=== PATIENT | male | born 1985 | race Caucasian/White ===

== ENCOUNTER 2021-09-17 06:28 | Day surgery (SDC) | payer OTHER ==
[~2021-09-17] VITALS: Ht 182.9 cm; Wt 88.5 kg
--- NOTE | 2021-09-17 08:05 | NUR ---
09/17/21 0805 Shraddha Deleon 0759- PT ARRIVES TO PACU AWAKE AND TALKING. PT REPORTS NO PAIN OR NAUSEA. RESP EVEN AND UNLABORED. OXYGEN SAT HIGH 90'S TO 100% ON 2L VIA CO2 NC. 0801- PT PASSING FLATUS.
--- NOTE | 2021-09-17 09:37 | NUR ---
PT ALERT, ORIENTED AND SUPPORTED BY HIS SHILOH. PT IS FHAVING FIRST SCOPE, HOPING TO FIND SOURCE OF HIS PROBLEM. ALL QUESTIONS ASKED ANSWERED SHILOH WILL REMAIN FOR DC. GAVE BLEGENEVIEVE, WILL FOLLOW
--- NOTE | 2021-09-18 10:46 | OR ---
[facility] [address], [place] [address] Signed DATE OF OPERATION: 09/17/2021 SURGEON: Otilio Cummings MD PREOPERATIVE DIAGNOSIS: Longstanding diarrhea, episodic rectal bleeding. POSTOPERATIVE DIAGNOSES: 1. Grossly normal colon and ilium. 2. Diminutive polyp of rectum. PROCEDURES: 1. Total colonoscopy to cecum with intubation of the ileum and biopsies. 2. Excision of diminutive polyp of rectum. ANESTHESIA: Intravenous sedation; fentanyl 150 mcg and Versed 8 mg. INDICATION: This 36-year-old white man is a patient of Dr. Conrad Wheeler. He has had diarrhea more or less since his teens. He was seen by front office medical assistant purportedly in [place], who did not recommend colonoscopy. He notes extreme diarrhea and fecal urgency, particularly after eating. He has had somewhat weight loss between 10 and 15 pounds, which was unintentional. He has no family history of inflammatory bowel disease or colon cancer. He takes no medications. 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 He is admitted to undergo colonoscopy to better characterize the problem. He understands the risk of bleeding, infection, and perforation. FINDINGS: The prep was excellent. Complete colonoscopy was undertaken to the cecum without question. Short segment intubation of the ileum was accomplished allowing for biopsies of the terminal ileum. There is no evidence of obvious inflammatory bowel disease or neoplasm. There was a diminutive polyp of the rectum, which was excised. DESCRIPTION OF PROCEDURE: The patient was brought to the endoscopy suite and placed in the lateral decubitus position, given intravenous sedation to the point of slurred speech and nystagmus. Digital rectal examination was normal. An Olympus video colonoscope was passed in the rectum and manipulated throughout the Electronically Signed By: OTILIO CUMMINGS MD 09/18/21 1046 PATIENT NAME: ALLYN GILBERT OPERATIVE REPORT DATE OF : 85 REPORT #: [id number] PHYSICIAN: OTILIO CUMMINGS MD PCP: CONRAD WHEELER MD REPORT IS CONFIDENTIAL AND NOT TO BE RELEASED WITHOUT AUTHORIZATION [facility] [address], [place] [address] Signed colon ultimately intubating the cecum itself. The ileocecal valve and appendiceal orifice appeared normal. Scope was manipulated into the ileum for short segment, which grossly appeared normal. Full intubation of the ileum was not forthcoming, it is noted however. Biopsies were obtained of the ileum. The scope was then withdrawn to the cecum and biopsies taken of the cecum, which also appeared normal. Careful withdrawal of the scope showed no sign of abnormality throughout the remaining colon. Biopsies were taken of the rectum as well. There was a diminutive polyp of the rectum, which was excised with cold morcellation technique. The scope was removed and the patient was taken to the recovery room in good condition. CONCLUSION DIAGNOSIS: No gross evidence of inflammatory bowel disease. Still the possibility remains of microscopic colitis (collagenous colitis or lymphocytic colitis) or other occult colitis type problems. PLAN: We will initiate loperamide 4 mg p.o. t.i.d. pending biopsy reports. We will additionally check a celiac panel (gluten enteropathy). He will return to see us in approximately 4 weeks. Otilio Cummings MD JM/MODL /[id number] cc: Conrad Wheeler MD Copies: CONRAD WHEELER MD ~ Electronically Signed By: OTILIO CUMMINGS MD 09/18/21 1046 PATIENT NAME: ALLYN GILBERT OPERATIVE REPORT DATE OF : [birth year] REPORT #: [id number] PHYSICIAN: OTILIO CUMMINGS MD PCP: CONRAD WHEELER MD REPORT IS CONFIDENTIAL AND NOT TO BE RELEASED WITHOUT AUTHORIZATION
--- NOTE | 2021-09-19 16:02 | PATH ---
[facility] [address], [place] [address] Signed SPECIMEN(S): A ILEUM BIOPSY SPECIMEN(S): B CECUM COLON BIOPSY SPECIMEN(S): C DESCENDING/LEFT COLON BIOPSY SPECIMEN(S): D SIGMOID COLON BIOPSY SPECIMEN(S): E RECTUM SPECIMEN(S): F RECTAL POLYP SPECIMEN SOURCE: A. ILEUM BIOPSY B. CECUM COLON BIOPSY C. DESCENDING/LEFT COLON BIOPSY D. SIGMOID COLON BIOPSY E. RECTUM F. RECTAL POLYP CLINICAL HISTORY: Colonoscopy. Chronic diarrhea. Postop: Grossly normal colon and ileum, diminutive polyp of rectum. FINAL PATHOLOGIC DIAGNOSIS: A. Ileum, biopsy: - Ileal mucosa with no histopathologic abnormality. - Negative for active inflammation or granulomas. - Negative for dysplasia or malignancy. B. Colon, cecum, biopsy: - Colonic mucosa with no histopathologic abnormality. - Negative for active, chronic, or microscopic colitis. - Negative for dysplasia or malignancy. C. Colon, descending/left, biopsy: - Colonic mucosa with no histopathologic abnormality. - Negative for active, chronic, or microscopic colitis. - Negative for dysplasia or malignancy. D. Colon, sigmoid, biopsy: - Colonic mucosa with no histopathologic abnormality. - Negative for active, chronic, or microscopic colitis. - Negative for dysplasia or malignancy. E. Rectum, biopsy: - Colonic mucosa with no histopathologic abnormality. - Negative for active, chronic, or microscopic colitis. - Negative for dysplasia or malignancy. F. Rectum, polyp, polypectomy: PATIENT NAME: ALLYN GILBERT PATHOLOGY DATE OF : 85 REPORT #: [id number] PHYSICIAN: ISAI SUMMERS PCP: CONRAD MAYERS MD REPORT IS CONFIDENTIAL AND NOT TO BE RELEASED WITHOUT AUTHORIZATION [facility] [address], [place] [address] Signed - Rectal mucosa with prominent mucosal lymphoid follicle, see Comment. - Negative for dysplasia or carcinoma. COMMENT: Regarding specimen F: Specimen F of this case will be sent for a hematopathology consultation and the results reported in an addendum. NAL:cml:[id number] MICROSCOPIC EXAMINATION: Histologic sections of all submitted blocks are examined by light microscopy. These findings, together with the gross examination, support the pathologic diagnosis. GROSS DESCRIPTION: Six specimens are received in six containers, labeled "JR." A. The specimen, labeled "JR, ileum biopsy," is received in formalin and consists of three hidalgo soft tissue fragments that measure 0.1-0.2 cm in greatest dimension. The specimen is entirely submitted in cassette (A1). B. The specimen, labeled "JR, cecum biopsy," is received in formalin and consists of two hidalgo soft tissue fragments that measure 0.1-0.2 cm in greatest dimension. The specimen is entirely submitted in cassette (B1). C. The specimen, labeled "JR, descending colon biopsy," is received in formalin and consists of two hidalgo soft tissue fragments that measure 0.1-0.2 cm in greatest dimension. The specimen is entirely submitted in cassette (C1). D. The specimen, labeled "JR, sigmoid colon biopsy," is received in formalin and consists of one hidalgo soft tissue fragment that measures 0.1 cm in greatest dimension. The specimen is entirely submitted in cassette (D1). E. The specimen, labeled "JR, rectum biopsy," is received in formalin and consists of five hidalgo soft tissue fragments that measure 0.1 cm in greatest dimension. The specimen is entirely submitted in cassette (E1). F. The specimen, labeled "JR, rectum polyp," is received in formalin and consists of two hidalgo soft tissue fragments that measure 0.1 cm in greatest dimension. The specimen is entirely submitted in cassette (F1). JS (under the direct supervision of a pathologist) PATIENT NAME: ALLYN GILBERT PATHOLOGY DATE OF : 85 REPORT #: [id number] PHYSICIAN: ISAI SUMMERS PCP: CONRAD MAYERS MD REPORT IS CONFIDENTIAL AND NOT TO BE RELEASED WITHOUT AUTHORIZATION [facility] [address] [place] [address] Signed The Gross Description was prepared using a voice recognition system. The report was reviewed for accuracy; however, sound-alike word errors, addition and/or deletions may occur. If there is any question about this report, please contact Client Services. PERFORMING LABORATORY: The technical component was performed by [facility], [address] [place] [id number] (CLIA# [id number]). [facility], [address] [address] (CLIA# [id number]). Diagnostician: Evangelina Culver MD Pathologist Electronically Signed 09/19/2021 Copies: ~ PATIENT NAME: ALLYN GILBERT PATHOLOGY DATE OF : 85 REPORT #: [id number] PHYSICIAN: ISAI SUMMERS PCP: CONRAD MAYERS MD REPORT IS CONFIDENTIAL AND NOT TO BE RELEASED WITHOUT AUTHORIZATION
== END 2021-09-17 08:42 | disposition home or self-care (01) ==
LOC: DS 06:28 → OPS 06:28 → DS 07:30 → OPS 07:30
PROVIDERS: ATTEND Surgery
PROC: 0DBB8ZX Excision of Ileum, Via Natural or Artificial Opening Endoscopic, Diagnostic (ICD-10-PCS; principal; 2021-09-17 07:30)
DX: K62.1 Rectal polyp (principal); K62.5 Hemorrhage of anus and rectum; K52.9 Noninfective gastroenteritis and colitis, unspecified
CPT/HCPCS: 99153; G0500; J2250; J3010; J7121